=== PATIENT | male | born 1975 | race Caucasian/White ===

== ENCOUNTER 2023-01-25 14:02 | Emergency (ER) | payer MEDICAID, OTHER ==
[~2023-01-25] VITALS: Ht 170.2 cm; Wt 105.0 kg
[2023-01-25 14:24] VITALS: BP 139/81
[2023-01-25 16:03] LABS: BASOPHILS % 0.9 % (0.0-2.0); EOSINOPHILS % 1.2 % (0.0-5.0); HEMATOCRIT. 45.2 % (42.0-52.0); HEMOGLOBIN. 15.3 g/dL (14.0-18.0); LYMPHOCYTES % 19.3 % (20.0-50.0); MEAN CORPUSCULAR HEMOGLOBIN 26.9 pg (28.0-32.0); MEAN CORPUSCULAR VOLUME 79.6 fL (80.0-94.0); MONOCYTES % 6.9 % (2.0-8.0); NEUTROPHILS % 71.7 % (40.0-76.0); PLATELET 234 x1000/uL (130-400); RED BLOOD CELL COUNT 5.68 mill/uL (4.7-6.1); RED CELL DISTRIBUTION WIDTH 13.4 % (11.6-14.6)
[2023-01-25 16:14] LABS: CHLORIDE 108 mEq/L (98-107)
[2023-01-25] MEDS ORDERED: ONDANSETRON 4MG ODT PO ONE (22:00)
[2023-01-25] MEDS ORDERED: FAMOTIDINE 20MG TABLET PO ONE (22:00)
[2023-01-25] MEDS ORDERED: MAGNESIUM/ALUMINUM HYDROXIDE/SIMETHICONE 30ML UDC PO ONE (22:00)
[2023-01-26] MEDS ORDERED: MAG-55 MT (00:30)
[2023-01-26] MEDS ORDERED: FAMO-135 PO (00:30)
== END 2023-01-26 00:42 | disposition home or self-care (01) ==
LOC: ER 14:02
DX: R10.0 Acute abdomen (principal); R07.89 Other chest pain; N43.3 Hydrocele, unspecified; K42.9 Umbilical hernia without obstruction or gangrene; R94.31 Abnormal electrocardiogram [ECG] [EKG]; I10 Essential (primary) hypertension; E11.9 Type 2 diabetes mellitus without complications
CPT/HCPCS: 36415; 71045; 74176; 76705; 80053; 83690; 84484; 85025; 93005; 99285; Q0162